=== PATIENT | female | born 2000 | race Caucasian/White ===

== ENCOUNTER 2021-03-31 00:30 | Emergency (ER) | payer OTHER ==
[~2021-03-31] VITALS: Ht 157.5 cm; Wt 82.1 kg
[2021-03-31] MEDS ORDERED: BENZONATATE 100 MG CAPSULE ONE (00:57)
[2021-03-31] MEDS ORDERED: BENZONATATE 100 MG CAPSULE PO ONE (01:00)
[2021-03-31 01:19] VITALS: BP 124/64
--- NOTE | 2021-03-31 01:19 | NUR ---
PT'S PHONE NUMBER: [phone]
== END 2021-03-31 01:21 | disposition home or self-care (01) ==
LOC: ED 01:00
DX: J98.01 Acute bronchospasm (principal); Z20.822 Contact with and (suspected) exposure to COVID-19; J45.909 Unspecified asthma, uncomplicated
CPT/HCPCS: 99283; J7512; U0003; U0005